=== PATIENT | female | born 1995 | race Caucasian/White ===

== ENCOUNTER 2017-05-12 | Emergency (ER) | payer OTHER ==
[2017-05-12] MEDS ORDERED: Diazepam 5 MG TAB ONE (00:20)
[2017-05-12] MEDS ORDERED: AMOXicillin 250 MG CAP ONE (00:20)
[2017-05-12] MEDS ORDERED: HYDROcodone/Acetaminophen 10/325 mg Tablet ONE (00:20)
[2017-05-12] MEDS ORDERED: Naproxen 500 MG TAB ONE (00:20)
== END 2017-05-12 00:28 | disposition home or self-care (01) ==
LOC: MADERS
DX: K04.7 Periapical abscess without sinus (principal); J01.90 Acute sinusitis, unspecified; K02.9 Dental caries, unspecified; K03.81 Cracked tooth; F41.9 Anxiety disorder, unspecified; F32.9 Major depressive disorder, single episode, unspecified
CPT/HCPCS: 99283

== ENCOUNTER 2021-08-29 20:33 | Emergency (ER) | payer OTHER ==
[2021-08-30 17:35] LABS: SARS-CoV-2 PCR by NAA Not Detected (NotDetected)
== END 2021-08-29 21:19 | disposition home or self-care (01) ==
LOC: MADERS 20:33
DX: O99.513 Diseases of the respiratory system complicating pregnancy, third trimester (principal); J20.6 Acute bronchitis due to rhinovirus; O99.013 Anemia complicating pregnancy, third trimester; D50.9 Iron deficiency anemia, unspecified; Z3A.36 36 weeks gestation of pregnancy; Z20.822 Contact with and (suspected) exposure to COVID-19; Z79.899 Other long term (current) drug therapy
CPT/HCPCS: 99284; U0003; U0005

== ENCOUNTER 2023-05-07 11:11 | Outpatient (CLI) | payer OTHER ==
[2023-05-07 11:42] LABS: #Basophils 0.1 thou/uL (0.0-0.2); #Eosinphils 0.1 thou/uL (0.0-0.7); #Monocytes 0.6 thou/uL (0.11-0.59); #Neutrophils 3.8 thou/uL (1.40-6.50); %Eosinophils 1.9 % (0.0-10.0); %Lymphocytes 30.9 % (21.0-51.0); %Monocytes 8.6 % (0.0-10.0); %Neutrophils 57.6 % (42.0-75.0); Hematocrit 39.5 % (36.0-47.0); Hemoglobin 13.3 g/dL (12.0-16.0); Mean Corpuscular HGB CONC 33.7 g/dL (32.0-36.0); Mean Corpuscular Hemoglobin 29.4 pg (27.0-31.0); Mean Corpuscular Volume 87.5 fl (78.0-98.0); Mean Platelet Volume 8.8 fL (7.4-10.4); Platelet Count 257 10x3/uL (130-400); Red Blood Cell (RBC) Count 4.51 mill/uL (4.20-5.40); White Blood Cell (WBC) Count 6.5 10x3/uL (4.8-10.8)
[2023-05-07 11:57] LABS: ALT (SGPT) 19 U/L (8-55); AST (SGOT) 17 U/L (5-34); Albumin 4.6 g/dL (3.5-5.0); Alkaline Phosphatase 75 U/L (40-110); Anion Gap 13 mmol/L (10-20); BUN (Urea Nitrogen) 10 mg/dL (7.0-18.7); Bilirubin, Total 0.6 mg/dL (0.2-1.2); Calc. Creatinine Clearance 0 mL/min (70-130); Carbon Dioxide 25 mmol/L (22-29); Chloride 104 mmol/L (98-107); Estimated GFR 100; Globulin 3.2 g/dL (2.4-3.5); Glucose 83 mg/dL (70-105); Potassium 4.2 mmol/L (3.5-5.1); Protein, Total 7.8 g/dL (6.0-8.3); Sodium 138 mmol/L (136-145)
[2023-05-07 12:14] LABS: Thyroid Stimulating Hormone 1.6442 uIU/mL (0.35-4.94)
[2023-05-07 17:23] LABS: Ferritin 43.32 ng/mL (10-291); Free T4 (Free Thyroxine) 1.03 ng/dL (0.70-1.48)
== END 2023-05-07 11:12 | disposition home or self-care (01) ==
LOC: MADEKG 11:11
PROVIDERS: ATTEND Family Medicine
DX: I95.1 Orthostatic hypotension (principal); R00.0 Tachycardia, unspecified; Z86.2 Personal history of diseases of the blood and blood-forming organs and certain disorders involving the immune mechanism
CPT/HCPCS: 36415; 80053; 82728; 84439; 84443; 84481; 85025; 93005; 93010